=== PATIENT | male | born 1955 | race Caucasian/White ===

== ENCOUNTER 2024-11-11 21:41 | Inpatient (IN) | payer MEDICARE, OTHER ==
[~2024-11-11] VITALS: Ht 182.9 cm; Wt 105.2 kg
[~2024-11-11 21:41] MED LIST: ATEN100T PO; HUM10VIA SQ; HYDR1TAB PO; SAXA5TAB PO; SITA100T PO
[2024-11-11 22:14] LABS: PLATELET COUNT (AUTO) 271 K/uL (150-450); RED BLOOD CELL COUNT(AUTO) 5.06 MIL/uL (4.5-6.0); RED CELL DISTRIBUTION WIDTH 16.2 % (11.5-15.0); WHITE BLOOD COUNT (AUTO) 6.4 K/uL (4.3-11.0)
[2024-11-11 22:21] LABS: CALCIUM, SERUM 7.8 mg/dL (8.5-10.1); CREATININE 0.7 mg/dL (0.6-1.3); SODIUM SERUM 139.0 mmol/L (136-145); UREA NITROGEN, BLOOD 16.0 mg/dL (7-18)
[2024-11-11 22:27] LABS: ASPARTATE AMINOTRANSFERASE 7.0 U/L (15-37); TOTAL PROTEIN, SERUM 7.0 g/dL (6.4-8.2)
[2024-11-11 22:38] LABS: INR 1.08 (0.91-1.10)
[2024-11-11 22:48] LABS: APPEARANCE,URINE CLEAR (CLEAR); BLOOD, URINE TRACE-INTA Ery/uL (NEGATIVE); LEUKOCYTE ESTERASE ,URINE NEGATIVE (NEGATIVE); NITRITE, URINE NEGATIVE (NEGATIVE); UGLUCOSE 3+ mg/dL (NEGATIVE)
[2024-11-11 22:57] LABS: ADD URINE CULTURE NO; SQUAMOUS EPITHELIAL CELL,UR None Seen /HPF (None Seen)
[2024-11-12] MEDS ORDERED: ONDANSETRON HCL/PF 4 MG/2 ML VIAL ONE (02:01)
[2024-11-12] MEDS ORDERED: MORPHINE SULFATE INJ 2 MG/ML DISP.SYRIN ONE (02:01)
[2024-11-12] MEDS: MORPHINE SULFATE INJ 2 MG/ML DISP.SYRIN IV ONE (02:03)
[2024-11-12] MEDS: IV NS 0.9% 1,000 ML IV ONE (02:03)
[2024-11-12] MEDS: ONDANSETRON HCL/PF - ER 4 MG/2 ML VIAL IV ONE (02:03)
[2024-11-12] MEDS ORDERED: KETOROLAC TROMETHAMINE INJ 30 MG/ML VIAL IM PRN (02:30)
[2024-11-12] MEDS ORDERED: Z GUARD REMEDY 4 OZ OINT TP PRN (02:30)
[2024-11-12] MEDS ORDERED: ONDANSETRON HCL/PF 4 MG/2 ML VIAL IVP PRN (02:30)
[2024-11-12] MEDS ORDERED: MAG HYDROX/AL HYDROX/SIMETH 30 ML UDC PO PRN (02:30)
[2024-11-12] MEDS ORDERED: MAGNESIUM HYDROXIDE 30 ML UDC PO PRN (02:30)
[2024-11-12] MEDS ORDERED: ZOLPIDEM TARTRATE 5 MG TABLET PO PRN (02:30)
[2024-11-12] MEDS: IV D5/0.45 NACL 1,000 ML IV PRN (03:43)
[2024-11-12] MEDS: ENOXAPARIN SODIUM 40 MG/0.4 ML DISP.SYRIN SQ SCH (03:47)
[2024-11-12 04:34] VITALS: BP 108/55; TEMP 97.7; O2SAT 98
[2024-11-12 08:00] VITALS: BP 96/66; TEMP 97.7; O2SAT 98
[2024-11-12] MEDS: PANTOPRAZOLE 40 MG VIAL IV SCH (09:05)
[2024-11-12] MEDS ORDERED: DEXTROSE 50%-WATER 50 ML DISP.SYRIN IV PRN (10:00)
[2024-11-12] MEDS ORDERED: RISP2TAB85 PO (10:20)
[2024-11-12] MEDS ORDERED: BLOO-374 IN (10:20)
[2024-11-12] MEDS ORDERED: RIVA10TA PO (10:20)
[2024-11-12] MEDS ORDERED: DOCU100C36 PO (10:20)
[2024-11-12] MEDS ORDERED: GABA600T12 PO (10:20)
[2024-11-12] MEDS ORDERED: AMIO200T5 PO (10:20)
[2024-11-12] MEDS ORDERED: ASPI-1420 PO (10:20)
[2024-11-12] MEDS ORDERED: TAMS-12 PO (10:20)
[2024-11-12] MEDS ORDERED: BENZ1TAB7 PO (10:20)
[2024-11-12] MEDS ORDERED: GUAI118L48 PO (10:20)
[2024-11-12] MEDS ORDERED: FINA5TAB11 PO (10:20)
[2024-11-12] MEDS ORDERED: GABA300C PO (10:20)
[2024-11-12] MEDS ORDERED: TRAM50TA2 PO (10:20)
[2024-11-12] MEDS ORDERED: DAPA5TAB PO (10:20)
[2024-11-12] MEDS ORDERED: DULO60CA45 PO (10:20)
[2024-11-12] MEDS ORDERED: INSU100I47 SQ (10:20)
[2024-11-12] MEDS ORDERED: TOLT4CAP14 PO (10:20)
[2024-11-12] MEDS ORDERED: MAGN400O6 PO (10:20)
[2024-11-12] MEDS ORDERED: INSU100I30 SQ (10:20)
[2024-11-12] MEDS ORDERED: NYST60PO TP (10:20)
[2024-11-12] MEDS ORDERED: BUPR150T10 PO (10:20)
[2024-11-12] MEDS ORDERED: ACET325T53 PO (10:20)
[2024-11-12] MEDS: INSULIN REGULAR, HUMAN 100 UNIT/ML 3 ML VIAL SQ PRN (11:43)
[2024-11-12] MEDS: BLOOD SUGAR DIAGNOSTIC 1 EACH STRIP IN SCH (11:44)
[2024-11-12 16:00] VITALS: BP 110/51; TEMP 98.2; O2SAT 99
[2024-11-12] MEDS: DULOXETINE HCL 30 MG CAPSULE.DR PO SCH (16:13)
[2024-11-12] MEDS: DOCUSATE SODIUM LIQ 100 MG/10 ML UDC PO SCH (16:13)
[2024-11-12] MEDS: GABAPENTIN 300 MG CAPSULE PO SCH ×2 (16:13→22:00)
[2024-11-12] MEDS: buPROPion SR 150 MG TABLET.ER PO SCH (16:14)
[2024-11-12] MEDS: NYSTATIN TOP POWDER 15 GM BOTTLE TP SCH (16:28)
[2024-11-12] MEDS: CLOTRIMAZOLE/BETAMETASONE DIPROPIONATE 15 GM TUBE TP SCH (16:28)
[2024-11-12] MEDS: RIVAROXABAN 10 MG TABLET PO SCH (17:14)
[2024-11-12 20:00] VITALS: BP 109/59; TEMP 99.5; O2SAT 99
[2024-11-12] MEDS: IV NS 0.9% 500 ML BAG IV ONE (21:31)
[2024-11-12] MEDS: BENZTROPINE MESYLATE (1 MG) 1 MG TABLET PO SCH (22:00)
[2024-11-12] MEDS: INSULIN GLARGINE, 100 UNIT/ML CARTRIDGE SQ SCH (22:00)
[2024-11-12] MEDS: TAMSULOSIN 0.4 MG CAP.SR.24H PO SCH (22:00)
[2024-11-13] MEDS: IV D5/0.45 NACL 1,000 ML IV PRN (05:08)
[2024-11-13 07:55] LABS: PLATELET COUNT (AUTO) 253 K/uL (150-450); RED BLOOD CELL COUNT(AUTO) 5.14 MIL/uL (4.5-6.0); RED CELL DISTRIBUTION WIDTH 16.9 % (11.5-15.0); WHITE BLOOD COUNT (AUTO) 7.5 K/uL (4.3-11.0)
[2024-11-13 08:00] VITALS: BP 121/69; TEMP 98.1; O2SAT 98
[2024-11-13 08:16] LABS: CALCIUM, SERUM 7.3 mg/dL (8.5-10.1); CREATININE 0.7 mg/dL (0.6-1.3); PHOSPHORUS 2.9 mg/dL (2.5-4.9); SODIUM SERUM 143.0 mmol/L (136-145); UREA NITROGEN, BLOOD 18.0 mg/dL (7-18)
[2024-11-13] MEDS: TOLTERODINE 2 MG CAP.SR PO SCH (09:00)
[2024-11-13] MEDS: ATENOLOL 50 MG TABLET PO SCH (09:00)
[2024-11-13] MEDS: AMIODARONE HCL 200 MG TABLET PO SCH (09:00)
[2024-11-13] MEDS: FINASTERIDE (5 MG) 5 MG TABLET PO SCH (09:00)
[2024-11-13] MEDS: DAPAGLIFLOZIN PROPANEDIOL 5 MG TABLET PO SCH (09:00)
[2024-11-13] MEDS: ASPIRIN EC 81 MG TABLET.DR PO SCH (09:00)
[2024-11-13] MEDS: POLYETHYLENE GLYCOL 3350 17 GM POWD.PACK PO SCH (09:00)
[2024-11-13] MEDS: DOCUSATE SODIUM 100 MG CAPSULE PO SCH (09:00)
[2024-11-13] MEDS: FUROSEMIDE 40 MG/4 ML VIAL IV SCH (10:01)
[2024-11-13 10:02] VITALS: BP 101/68; TEMP 98.3
[2024-11-13 15:20] VITALS: BP 107/58; TEMP 98.1; O2SAT 98
[2024-11-13 16:00] VITALS: BP 110/66; TEMP 98.2; O2SAT 97
[2024-11-13 20:00] VITALS: BP 105/60; TEMP 98.4; O2SAT 98
[2024-11-14 08:00] VITALS: BP 109/81; TEMP 97.7; O2SAT 94
[2024-11-14 08:39] LABS: PLATELET COUNT (AUTO) 250 K/uL (150-450); RED BLOOD CELL COUNT(AUTO) 5.32 MIL/uL (4.5-6.0); RED CELL DISTRIBUTION WIDTH 16.3 % (11.5-15.0); WHITE BLOOD COUNT (AUTO) 9.4 K/uL (4.3-11.0)
[2024-11-14 08:53] LABS: ASPARTATE AMINOTRANSFERASE 10.0 U/L (15-37); CALCIUM, SERUM 7.7 mg/dL (8.5-10.1); CREATININE 0.8 mg/dL (0.6-1.3); PHOSPHORUS 1.3 mg/dL (2.5-4.9); SODIUM SERUM 143.0 mmol/L (136-145); TOTAL PROTEIN, SERUM 7.0 g/dL (6.4-8.2); UREA NITROGEN, BLOOD 22.0 mg/dL (7-18)
[2024-11-14] MEDS: PANTOPRAZOLE 40 MG/PACK PACK PO SCH (08:58)
[2024-11-14] MEDS ORDERED: NYSTATIN TOP POWDER 15 GM BOTTLE TP SCH (09:23)
[2024-11-14] MEDS: NYSTATIN TOP POWDER 15 GM BOTTLE TP SCH (10:35)
[2024-11-14 14:00] VITALS: BP 97/62; TEMP 97.7; O2SAT 97
[2024-11-14] MEDS: POTASSIUM CHLORIDE 20 MEQ POWDER PACKET PO SCH (14:08)
[2024-11-14] MEDS: NEUTRA PHOS 1 POWD.PACKET PO ONE (16:22)
[2024-11-14 20:00] VITALS: BP 99/68; TEMP 97.9; O2SAT 98
[2024-11-14 22:24] VITALS: BP 99/68; TEMP 97.9; O2SAT 98
[2024-11-15] VITALS (19 sets, daily range): BP systolic 48–269; BP diastolic 30–110; TEMP 97.7–99.8; O2SAT 81–100
[2024-11-15 07:20] LABS: CALCIUM, SERUM 7.8 mg/dL (8.5-10.1); CREATININE 0.8 mg/dL (0.6-1.3); PHOSPHORUS 2.6 mg/dL (2.5-4.9); SODIUM SERUM 140.0 mmol/L (136-145); UREA NITROGEN, BLOOD 30.0 mg/dL (7-18)
[2024-11-15] MEDS ORDERED: POTASSIUM CHLORIDE 20 MEQ TAB.PRT.SR PO SCH (08:00)
[2024-11-15] MEDS ORDERED: ATEN50TA PO (09:44)
[2024-11-15] MEDS ORDERED: SACU1TAB PO (09:46)
[2024-11-15] MEDS: POTASSIUM CHLORIDE 20 MEQ POWDER PACKET PO SCH (10:13)
[2024-11-15 19:04] LABS: ABG BASE EXCESS 1.5 mmol/L (-2.0-3.0); ABG OXYGEN SATURATION 99.6 % (94.0-98.0); ABG PCO2 43.9 mmHg (35.0-48.0); ABG PH 7.402 (7.350-7.450); ABG PO2 296.1 mmHg (83.0-108.0); ABG TOTAL HEMOGLOBIN 16.0 G/dL (13.5-17.5); FLOW, BLOOD GAS 15.00 L/min (0.00-30.00); SITE, ABG RIGHT BRACHIAL
[2024-11-15] MEDS: METOPROLOL TARTRATE INJ 5 MG/5 ML AMPUL IVP ONE (19:58)
[2024-11-15] MEDS: IV NS 0.9% 500 ML BAG IV ONE (20:00)
[2024-11-15] MEDS ORDERED: IV D5/0.45 NACL 1,000 ML IV PRN (20:00)
[2024-11-15] MEDS ORDERED: IV NS 0.9% 1,000 ML BAG IV ONE (20:00)
[2024-11-15] MEDS: PHENYLEPHRINE 50 MG in IV NS 0.9% 245 ML IV PRN (20:24)
[2024-11-15 20:31] LABS: PLATELET COUNT (AUTO) 128 K/uL (150-450); RED BLOOD CELL COUNT(AUTO) 5.25 MIL/uL (4.5-6.0); RED CELL DISTRIBUTION WIDTH 16.1 % (11.5-15.0); WHITE BLOOD COUNT (AUTO) 8.8 K/uL (4.3-11.0)
[2024-11-15] MEDS: AMIODARONE 150 MG in IV D5W 100 ML IV ONE (20:35)
[2024-11-15] MEDS: PROPOFOL 100 ML IV PRN (20:47)
[2024-11-15] MEDS: AMIODARONE 450 MG in IV D5W 241 ML IV PRN (20:55)
[2024-11-15 21:02] LABS: CALCIUM, SERUM 8.2 mg/dL (8.5-10.1); CREATININE 1.7 mg/dL (0.6-1.3); SODIUM SERUM 137 mmol/L (136-145); UREA NITROGEN, BLOOD 35 mg/dL (7-18)
[2024-11-15 21:15] LABS: LACTIC ACID 3.6 mmol/L (0.4-2.0)
[2024-11-15] MEDS ORDERED: CEFEPIME 1 GM in IV D5W 50 ML IV SCH (21:30)
[2024-11-15] MEDS ORDERED: DOSING PER PHARMACY-VANCOMYCIN IV XX PRN (21:30)
[2024-11-15] MEDS ORDERED: DEXTROSE 50%-WATER 50 ML DISP.SYRIN IV PRN (21:30)
[2024-11-15] MEDS ORDERED: VANCOMYCIN 1.5 GM in IV D5W 500 ML IV SCH (21:30)
[2024-11-15 22:05] LABS: ABG BASE EXCESS -2.2 mmol/L (-2.0-3.0); ABG OXYGEN SATURATION 99.4 % (94.0-98.0); ABG PCO2 26.4 mmHg (35.0-48.0); ABG PH 7.485 (7.350-7.450); ABG PO2 217.3 mmHg (83.0-108.0); ABG TOTAL HEMOGLOBIN 15.9 G/dL (13.5-17.5); PEEP,BG 0 cm H2O; SET RATE, BG 18.0; SITE, ABG RIGHT RADIAL; VT, ABG 550 mL
[2024-11-15] MEDS ORDERED: CEFEPIME 1 GM VIAL ONE (22:07)
[2024-11-15] MEDS ORDERED: VANCOMYCIN 500 MG VIAL ONE (22:08)
[2024-11-15] MEDS: VANCOMYCIN 1 GM /D5W 250 ML PB IV ONE (23:00)
[2024-11-15] MEDS: EPINEPHRINE (1:10,000) SYRINGE 1 MG/10 ML DISP.SYRIN ONE (23:00)
[2024-11-15] MEDS: CEFEPIME 1 GM in IV D5W 50 ML IV ONE (23:08)
[2024-11-15] MEDS: Magnesium 1GM/D5W 100ML PREMIX 100 ML IV SCH (23:22)
[2024-11-15] MEDS: SODIUM BICARBONATE SYR 50 MEQ/50 ML DISP.SYRIN IV ONE (23:23)
[2024-11-15] MEDS: CALCIUM CHLORIDE 1,000 MG/10 ML DISP.SYRIN IV ONE (23:23)
[2024-11-15] MEDS: DEXTROSE 50%-WATER 50 ML DISP.SYRIN IV ONE (23:23)
[2024-11-15] MEDS: INSULIN REGULAR, HUMAN 100 UNIT/ML 10 ML VIAL IV ONE (23:24)
[2024-11-15] MEDS: BLOOD SUGAR DIAGNOSTIC 1 EACH STRIP IN SCH (23:25)
[2024-11-16] VITALS (94 sets, daily range): BP systolic 47–116; BP diastolic 33–79; TEMP 98.5–102.8; O2SAT 80–99
[2024-11-16] MEDS: VANCOMYCIN 1.5 GM in IV D5W 500 ML IV ONE (00:55)
[2024-11-16 01:17] LABS: LACTIC ACID REFLEX 9.5 mmol/L (0.4-1.9)
[2024-11-16 01:56] LABS: CALCIUM, SERUM 10.6 mg/dL (8.5-10.1); CREATININE 2.3 mg/dL (0.6-1.3); SODIUM SERUM 140.0 mmol/L (136-145); UREA NITROGEN, BLOOD 43.0 mg/dL (7-18)
[2024-11-16] MEDS: NOREPINEPHRINE 4 MG/4 ML AMPUL IV ONE (02:11)
[2024-11-16] MEDS: NOREPINEPHRINE 32 MG in IV NS 0.9% 218 ML IV PRN (02:13)
[2024-11-16] MEDS: INSULIN REGULAR, HUMAN 100 UNIT/ML 3 ML VIAL SQ PRN ×2 (05:37→11:04)
[2024-11-16 06:57] LABS: PLATELET COUNT (AUTO) 100 K/uL (150-450); RED BLOOD CELL COUNT(AUTO) 4.91 MIL/uL (4.5-6.0); RED CELL DISTRIBUTION WIDTH 16.4 % (11.5-15.0); WHITE BLOOD COUNT (AUTO) 14.4 K/uL (4.3-11.0)
[2024-11-16 07:13] LABS: CALCIUM, SERUM 8.5 mg/dL (8.5-10.1); CREATININE 2.3 mg/dL (0.6-1.3); PHOSPHORUS 4.5 mg/dL (2.5-4.9); SODIUM SERUM 137 mmol/L (136-145); TOTAL PROTEIN, SERUM 6.1 g/dL (6.4-8.2); UREA NITROGEN, BLOOD 45 mg/dL (7-18)
[2024-11-16] MEDS ORDERED: ZOLPIDEM TARTRATE 5 MG TABLET GT PRN (08:28)
[2024-11-16] MEDS ORDERED: MAGNESIUM HYDROXIDE 30 ML UDC GT PRN (08:28)
[2024-11-16] MEDS ORDERED: MAG HYDROX/AL HYDROX/SIMETH 30 ML UDC GT PRN (08:28)
[2024-11-16] MEDS ORDERED: PHARMACY TO CHANGE PO MEDS TO GT/NG XX PRN (08:30)
[2024-11-16] MEDS ORDERED: RIVAROXABAN 10 MG TABLET GT SCH (08:30)
[2024-11-16 08:42] LABS: LYMPHOCYTES % (MANUAL) 6 % (16-48); MONOCYTES % (MANUAL) 5 % (0-11.0); NEUTROPHILS % (MANUAL) 89 (42-76); PLATELET ESTIMATE DECREASED
[2024-11-16 08:53] LABS: ASPARTATE AMINOTRANSFERASE > 1000 U/L (15-37)
[2024-11-16] MEDS: ATENOLOL 50 MG TABLET GT SCH (09:00)
[2024-11-16] MEDS: DAPAGLIFLOZIN PROPANEDIOL 5 MG TABLET GT SCH (09:00)
[2024-11-16] MEDS: DOCUSATE SODIUM LIQ 100 MG/10 ML UDC GT SCH (09:39)
[2024-11-16] MEDS: DULOXETINE HCL 30 MG CAPSULE.DR GT SCH (09:39)
[2024-11-16] MEDS: GABAPENTIN 300 MG CAPSULE GT SCH ×2 (09:50→22:04)
[2024-11-16] MEDS: POLYETHYLENE GLYCOL 3350 17 GM POWD.PACK GT SCH (09:50)
[2024-11-16] MEDS: PANTOPRAZOLE 40 MG/PACK PACK GT SCH (09:51)
[2024-11-16] MEDS: ASPIRIN 81 MG TAB.CHEW PO SCH (09:55)
[2024-11-16] MEDS: FINASTERIDE (5 MG) 5 MG TABLET GT SCH (09:55)
[2024-11-16 10:23] LABS: CALCIUM, SERUM 8.9 mg/dL (8.5-10.1); CREATININE 1.9 mg/dL (0.6-1.3); SODIUM SERUM 137.0 mmol/L (136-145); UREA NITROGEN, BLOOD 45.0 mg/dL (7-18)
[2024-11-16 10:38] LABS: TOTAL PROTEIN, SERUM 7.2 g/dL (6.4-8.2)
[2024-11-16] MEDS ORDERED: DEXTROSE 50%-WATER 50 ML DISP.SYRIN IV PRN (11:00)
[2024-11-16] MEDS: PHENYLEPHRINE 100 MG in IV NS 0.9% 240 ML IV PRN (11:09)
[2024-11-16] MEDS: DOBUTamine 500 MG in IV D5W 210 ML IV PRN (11:18)
[2024-11-16 11:27] LABS: ASPARTATE AMINOTRANSFERASE > 1000 U/L (15-37)
[2024-11-16] MEDS ORDERED: EPINEPHRINE (1:10,000) SYRINGE 1 MG/10 ML DISP.SYRIN IVP ONE (11:28)
[2024-11-16 11:30] LABS: LACTIC ACID 9.9 mmol/L (0.4-2.0)
[2024-11-16] MEDS: ENOXAPARIN SODIUM 100 MG/ML DISP.SYRIN SQ SCH (11:33)
[2024-11-16] MEDS: ACETAMINOPHEN 325 MG TABLET PO PRN (12:46)
[2024-11-16] MEDS: BLOOD SUGAR DIAGNOSTIC 1 EACH STRIP IN SCH ×2 (13:13→21:22)
[2024-11-16 17:15] LABS: ABG BASE EXCESS -1.6 mmol/L (-2.0-3.0); ABG OXYGEN SATURATION 95.7 % (94.0-98.0); ABG PCO2 25.0 mmHg (35.0-48.0); ABG PH 7.510 (7.350-7.450); ABG PO2 80.6 mmHg (83.0-108.0); ABG TOTAL HEMOGLOBIN 15.4 G/dL (13.5-17.5); FRACTIONATED INSPIRED OXYGEN 40.0 %; SET RATE, BG 18.0; SITE, ABG LEFT FEMORAL; VT, ABG 550 mL
[2024-11-16] MEDS: SODIUM ZIRCONIUM CYCLOSILICATE 10 GM POWD.PACK NG SCH (17:29)
[2024-11-16 17:59] LABS: CALCIUM, SERUM 8.4 mg/dL (8.5-10.1); CREATININE 2.6 mg/dL (0.6-1.3); SODIUM SERUM 138.0 mmol/L (136-145); UREA NITROGEN, BLOOD 66.0 mg/dL (7-18)
[2024-11-16] MEDS ORDERED: INSULIN REGULAR, HUMAN 100 UNIT/ML 10 ML VIAL ONE ×2 (20:50→21:01)
[2024-11-16] MEDS: INSULIN REGULAR, HUMAN 100 UNIT in IV NS 0.9% 99 ML IV PRN (21:21)
[2024-11-16] MEDS: BENZTROPINE MESYLATE (1 MG) 1 MG TABLET GT SCH (22:02)
[2024-11-16] MEDS: TAMSULOSIN 0.4 MG CAP.SR.24H GT SCH (22:02)
[2024-11-16] MEDS: CEFEPIME 1 GM in IV D5W 50 ML IV SCH (22:04)
[2024-11-17] VITALS (97 sets, daily range): BP systolic 79–108; BP diastolic 49–70; TEMP 100.5–104.5; O2SAT 94–100
[2024-11-17] MEDS ORDERED: EPINEPHRINE (1:10,000) SYRINGE 1 MG/10 ML DISP.SYRIN IVP ONE (02:09)
[2024-11-17] MEDS ORDERED: CALCIUM CHLORIDE 1,000 MG/10 ML DISP.SYRIN IV ONE (02:09)
[2024-11-17 04:50] LABS: PLATELET COUNT (AUTO) 86 K/uL (150-450); RED BLOOD CELL COUNT(AUTO) 4.86 MIL/uL (4.5-6.0); RED CELL DISTRIBUTION WIDTH 15.6 % (11.5-15.0); WHITE BLOOD COUNT (AUTO) 15.5 K/uL (4.3-11.0)
[2024-11-17] MEDS: BLOOD SUGAR DIAGNOSTIC 1 EACH STRIP IN SCH (05:06)
[2024-11-17] MEDS: DEXTROSE 50%-WATER 50 ML DISP.SYRIN IV PRN (05:06)
[2024-11-17 05:29] LABS: CREATINE KINASE, TOTAL 2852 U/L (39-308)
[2024-11-17 05:33] LABS: CALCIUM, SERUM 7.7 mg/dL (8.5-10.1); CREATININE 3.1 mg/dL (0.6-1.3); PHOSPHORUS 2.1 mg/dL (2.5-4.9); SODIUM SERUM 140 mmol/L (136-145); TOTAL PROTEIN, SERUM 5.6 g/dL (6.4-8.2); UREA NITROGEN, BLOOD 73 mg/dL (7-18)
[2024-11-17 05:52] LABS: LYMPHOCYTES % (MANUAL) 14 % (16-48); MONOCYTES % (MANUAL) 11 % (0-11.0); NEUTROPHILS % (MANUAL) 75 (42-76); PLATELET ESTIMATE DECREASED
[2024-11-17 07:31] LABS: ASPARTATE AMINOTRANSFERASE > 10000 U/L (15-37)
[2024-11-17 11:58] LABS: PLATELET COUNT (AUTO) 66 K/uL (150-450); RED BLOOD CELL COUNT(AUTO) 5.48 MIL/uL (4.5-6.0); RED CELL DISTRIBUTION WIDTH 16.7 % (11.5-15.0); WHITE BLOOD COUNT (AUTO) 17.3 K/uL (4.3-11.0)
[2024-11-17] MEDS: FUROSEMIDE 40 MG/4 ML VIAL IV SCH (12:26)
[2024-11-17] MEDS: INSULIN REGULAR, HUMAN 100 UNIT/ML 3 ML VIAL SQ PRN (12:46)
[2024-11-17] MEDS: VANCOMYCIN 1 GM in IV D5W 250ml IV SCH (13:10)
[2024-11-17 13:48] LABS: LYMPHOCYTES % (MANUAL) 8 % (16-48); MONOCYTES % (MANUAL) 7 % (0-11.0); NEUTROPHILS % (MANUAL) 85 (42-76); PLATELET ESTIMATE DECREASED
[2024-11-17] MEDS: IV NS 0.9% 250 ML IV PRN (18:56)
[2024-11-17] MEDS: INSULIN GLARGINE, 100 UNIT/ML CARTRIDGE SQ SCH (21:52)
[2024-11-18] MEDS ORDERED: LORAZEPAM INJ 2 MG/ML VIAL ONE (00:37)
[2024-11-18] MEDS ORDERED: SODIUM BICARBONATE SYR 50 MEQ/50 ML DISP.SYRIN ONE (00:53)
[2024-11-18] MEDS ORDERED: IBUPROFEN 600 MG TABLET PO PRN (01:00)
[2024-11-18] MEDS: LORAZEPAM INJ 2 MG/ML VIAL IV PRN (01:03)
[2024-11-18 07:32] LABS: CREATININE, URINE 85.4 MG/DL (30.0-125.0); URINE SODIUM, RANDOM 8.0 mmol/l (40-220); URINE TOTAL PROTEIN 497.7 mg/dL (0-11.9)
[2024-11-18 08:34] LABS: APPEARANCE,URINE SLIGHTLY CLOUDY (CLEAR); BLOOD, URINE 3+ Ery/uL (NEGATIVE); LEUKOCYTE ESTERASE ,URINE NEGATIVE (NEGATIVE); NITRITE, URINE POSITIVE (NEGATIVE); UGLUCOSE 2+ mg/dL (NEGATIVE)
[2024-11-18 09:33] LABS: ADD URINE CULTURE YES; SQUAMOUS EPITHELIAL CELL,UR Moderate /HPF (None Seen); YEAST,URINE Moderate /HPF (None Seen)
[2024-11-18 10:39] LABS: EOSINOPHIL,URINE None Seen
[2024-11-19 01:08] LABS: PTH, INTACT 38 pg/mL (15-65)
[2024-11-20 12:07] LABS: *SPE A/G RATIO 0.9 (0.7-1.7); *SPE ALBUMIN 2.3 g/dL (2.9-4.4); *SPE ALPHA-1-GLOBULIN 0.3 g/dL (0.0-0.4); *SPE ALPHA-2-GLOBULIN 0.8 g/dL (0.4-1.0); *SPE BETA GLOBULIN 0.9 g/dL (0.7-1.3); *SPE GLOBULIN, TOTAL 2.6 g/dL (2.2-3.9); *SPE M-SPIKE Not Observed g/dL (Not Observed); *SPE PROTEIN TOTAL 4.9 g/dL (6.0-8.5); *SPEGAMMA GLOBULIN 0.7 g/dL (0.4-1.8)
== END 2024-11-18 02:10 | DRG 291 ==
LOC: ER 21:43 → TELE 11-12 01:21 → MED 11-12 07:46 → ICU 11-15 18:59
PROVIDERS: ADMIT Internal Medicine; ATTEND Internal Medicine
PROC: 5A1945Z Respiratory Ventilation, 24-96 Consecutive Hours (ICD-10-PCS; principal; 2024-11-15)
PROC: 0BH18EZ Insertion of Endotracheal Airway into Trachea, Via Natural or Artificial Opening Endoscopic (ICD-10-PCS; 2024-11-15)
PROC: 02HV33Z Insertion of Infusion Device into Superior Vena Cava, Percutaneous Approach (ICD-10-PCS; 2024-11-15)
PROC: B548ZZA Ultrasonography of Superior Vena Cava, Guidance (ICD-10-PCS; 2024-11-15)
PROC: 5A12012 Performance of Cardiac Output, Single, Manual (ICD-10-PCS; 2024-11-16)
PROC: 5A2204Z Restoration of Cardiac Rhythm, Single (ICD-10-PCS; 2024-11-16)
DX: I13.0 Hypertensive heart and chronic kidney disease with heart failure and stage 1 through stage 4 chronic kidney disease, or unspecified chronic kidney disease (principal); A41.9 Sepsis, unspecified organism; G92.8 Other toxic encephalopathy; N17.0 Acute kidney failure with tubular necrosis; K72.00 Acute and subacute hepatic failure without coma; R65.21 Severe sepsis with septic shock; J96.01 Acute respiratory failure with hypoxia; I50.43 Acute on chronic combined systolic (congestive) and diastolic (congestive) heart failure; I47.20 Ventricular tachycardia, unspecified; E87.4 Mixed disorder of acid-base balance; I95.9 Hypotension, unspecified; R10.9 Unspecified abdominal pain; R19.7 Diarrhea, unspecified; I25.10 Atherosclerotic heart disease of native coronary artery without angina pectoris; I48.0 Paroxysmal atrial fibrillation; Z79.84 Long term (current) use of oral hypoglycemic drugs; Z79.899 Other long term (current) drug therapy; Z79.01 Long term (current) use of anticoagulants; Z79.4 Long term (current) use of insulin; Z88.0 Allergy status to penicillin; E87.6 Hypokalemia; E11.65 Type 2 diabetes mellitus with hyperglycemia; E66.9 Obesity, unspecified; E11.40 Type 2 diabetes mellitus with diabetic neuropathy, unspecified; E11.22 Type 2 diabetes mellitus with diabetic chronic kidney disease; R57.0 Cardiogenic shock; N18.9 Chronic kidney disease, unspecified; I25.5 Ischemic cardiomyopathy; I44.7 Left bundle-branch block, unspecified; N40.1 Benign prostatic hyperplasia with lower urinary tract symptoms; R33.8 Other retention of urine; Z68.31 Body mass index [BMI] 31.0-31.9, adult
CPT/HCPCS: 31720; 36415; 36569; 36600; 70450-TC; 71045-TC; 76700-TC; 80048-TC; 80053-TC; 80076-TC; 81001; 82247-TC; 82248-TC; 82550-TC; 82553; 82570-TC; 82803-TC; 82962-TC; 83605-TC; 83690-TC; 83735-TC; 83880; 83970; 84100-TC; 84155; 84165; 84300-TC; 84484-TC; 85025-TC; 85027-TC; 85378-TC; 85730-TC; 87040-TC; 87081-TC; 87086-TC; 92526; 92611; 92950-TC; 93307-TC; 94002-TC; 94003-TC; 94799-TC; 97110-TC; 97116-TC; 97530-TC; A4223; A6403; G0378; J0169; J0282; J0692; J1250; J1650; J1815; J1938; J2060; J2270; J2405; J2470; J3373; J3374; J3475; J3490; J7030; J7040; J7050; J7060